=== PATIENT | female | born 1990 | race Caucasian/White ===

== ENCOUNTER 2020-09-15 13:09 | Emergency (ER) | payer MEDICAID ==
--- NOTE | 2020-09-15 13:33 | EDM.PDOC ---
ED HPI GENERAL MEDICAL PROBLEM - General Chief Complaint: Respiratory Problem Stated Complaint: COVID + Time Seen by Provider: 09/15/20 14:32 Source of Information: Reports: Patient, RN, RN Notes Reviewed History Limitations: Reports: No Limitations - History of Present Illness INITIAL COMMENTS - FREE TEXT/NARRATIVE: Patient presents to the ED via personal vehicle with the complaints of chest pain. Per the patient she tested positive for COVID on 09/14/20 after experiencing symptoms on 09/12/20. He attests to shortness of breath, headache, palpitations, and mid-sternal localized chest pain. She denies nausea, vomiting, or diarrhea. The patient states she has a history of SVT and follows with [facility] in Cardiology and Ariel in EP. She states she takes Diltiazem PRN when her chest pain and palpitations "...get really bad." She has not been to either provider since December 2019. She denies syncopal events or changes in vision. Anterior Chest Pain Score (Numeric/FACES): 5 - Related Data Allergies Allergy/AdvReac Type Severity Reaction Status Date / Time tape adhesive AdvReac Rash Uncoded 09/15/20 12:53 Home Meds: Home Meds Diltiazem [Tiazac] 180 mg PO DAILY PRN 09/15/20 [History] ED ROS GENERAL - Review of Systems Review Of Systems: Comprehensive ROS is negative, except as noted in HPI. ED EXAM, GENERAL - Physical Exam Exam: See Below Exam Limited By: No Limitations General Appearance: Alert, WD/WN, No Apparent Distress Throat/Mouth: Normal Voice, No Airway Compromise Head: Atraumatic, Normocephalic Neck: Normal Inspection, Supple, Non-Tender, Full Range of Motion Respiratory/Chest: No Respiratory Distress, Lungs Clear, Normal Breath Sounds, No Accessory Muscle Use. No: Chest Non-Tender (Midsternal CP) Cardiovascular: Normal Peripheral Pulses, Regular Rate, Rhythm, No Edema, No Gallop, No Murmur, No Rub Peripheral Pulses: 2+: Radial (L), Radial (R), Dorsalis Pedis (L), Dorsalis Pedis (R) GI/Abdominal: Normal Bowel Sounds, Soft, Non-Tender, No Distention, No Mass (Female) Exam: Deferred Rectal (Female) Exam: Deferred Back Exam: Normal Inspection, Full Range of Motion. No: CVA Tenderness (L), CVA Tenderness (R) Extremities: Normal Inspection, Normal Range of Motion, Non-Tender, No Pedal Edema, Normal Capillary Refill Neurological: Alert, Oriented, CN II-XII Intact Skin Exam: Warm, Dry, Intact, Normal Color, No Rash. No: Ecchymosis, Erythema, Pallor, Petechiae, Rash #1 Interpretation EKG Date: 09/15/20 Time: 13:33 Rhythm: NSR Rate (Beats/Min): 71 [place]: Normal P-Wave: Present QRS: Normal ST-T: Normal QT: Normal Comparison: NA - No Prior EKG (NSR; No evidence of acute ischemia) Course - Vital Signs Last Recorded V/S: Last Vital Signs Temp 99 F 09/15/20 12:42 Pulse 71 09/15/20 12:42 Resp 20 09/15/20 12:42 BP 117/72 09/15/20 12:42 Pulse Ox 98 09/15/20 12:42 - Orders/Labs/Meds Orders: Active Orders 24 hr Category Date Time Status EKG Documentation Completion [RC] STAT Care 09/15/20 12:42 Active Chest 1V Frontal [CR] Urgent Exams 09/15/20 12:42 Taken CULTURE BLOOD [BC] Stat Lab 09/15/20 12:59 Received Blood Culture x2 Reflex Set [OM.PC] Stat Oth 09/15/20 12:42 Ordered Labs: Laboratory Tests 09/15/20 09/15/20 09/15/20 Range/Units 12:59 12:59 12:59 WBC 8.8 (5.0-10.0) 10^3/uL RBC 4.67 (4.2-5.4) 10^6/uL Hgb 13.9 (12.0-16.0) g/dL Hct 41.2 (37.0-47.0) % MCV 88.2 (80-100) fL MCH 29.8 (27.0-34.0) pg MCHC 33.7 (33.0-35.0) g/dL Plt Count 337 (150-450) 10^3/uL Neut % (Auto) 58.6 (42.2-75.2) % Lymph % (Auto) 22.6 (20.5-50.1) % [place] % (Auto) 9.2 H (2-8) % Eos % (Auto) 9.1 H (1.0-3.0) % Baso % (Auto) 0.5 (0.0-1.0) % Sodium 141 (136-145) mmol/L Potassium 3.9 (3.5-5.1) mmol/L Chloride 104 (98-107) mmol/L Carbon Dioxide 28 (21-32) mmol/L Anion Gap 12.9 (7-13) mEq/L BUN 7 (7-18) mg/dL Creatinine 0.79 (0.55-1.02) mg/dL Est Cr Clr Drug Dosing TNP Estimated GFR (MDRD) > 60 BUN/Creatinine Ratio 8.9 (No establ ref range) Glucose 84 (74-99) mg/dL Lactic Acid 0.9 (0.4-2.0) mmol/L Calcium 9.1 (8.5-10.1) mg/dL Total Bilirubin 0.4 (0.2-1.0) mg/dL AST 36 (15-37) U/L ALT 54 (14-59) U/L Alkaline Phosphatase 89 (46-116) U/L Troponin I < 0.017 (0.000-0.056) ng/mL Total Protein 7.8 (6.4-8.2) g/dL Albumin 3.9 (3.4-5.0) g/dL Globulin 3.9 Albumin/Globulin Ratio 1.0 Urine Color (YELLOW) Urine Appearance (CLEAR) Urine pH (5.0-9.0) Ur Specific [place] (1.005-1.030) Urine Protein (NEGATIVE) Urine Glucose (UA) (NEGATIVE) Urine Ketones (NEGATIVE) Urine Occult Blood (NEGATIVE) Urine Nitrite (NEGATIVE) Urine Bilirubin (NEGATIVE) Urine Urobilinogen (0.2-1.0) mg/dL Ur Leukocyte Esterase (NEGATIVE) Urine Opiates Screen (NEGATIVE) Ur Oxycodone Screen (NEGATIVE) Urine Methadone Screen (NEGATIVE) Ur Barbiturates Screen (NEGATIVE) U Tricyclic Antidepress (NEGATIVE) Ur Phencyclidine Scrn (NEGATIVE) Ur Amphetamine Screen (NEGATIVE) U Methamphetamines Scrn (NEGATIVE) Urine MDMA Screen (NEGATIVE) U Benzodiazepines Scrn (NEGATIVE) Urine Cocaine Screen (NEGATIVE) U Marijuana (THC) Screen (NEGATIVE) 09/15/20 09/15/20 Range/Units 13:08 13:08 WBC (5.0-10.0) 10^3/uL RBC (4.2-5.4) 10^6/uL Hgb (12.0-16.0) g/dL Hct (37.0-47.0) % MCV (80-100) fL MCH (27.0-34.0) pg MCHC (33.0-35.0) g/dL Plt Count (150-450) 10^3/uL Neut % (Auto) (42.2-75.2) % Lymph % (Auto) (20.5-50.1) % [place] % (Auto) (2-8) % Eos % (Auto) (1.0-3.0) % Baso % (Auto) (0.0-1.0) % Sodium (136-145) mmol/L Potassium (3.5-5.1) mmol/L Chloride (98-107) mmol/L Carbon Dioxide (21-32) mmol/L Anion Gap (7-13) mEq/L BUN (7-18) mg/dL Creatinine (0.55-1.02) mg/dL Est Cr Clr Drug Dosing Estimated GFR (MDRD) BUN/Creatinine Ratio (No establ ref range) Glucose (74-99) mg/dL Lactic Acid (0.4-2.0) mmol/L Calcium (8.5-10.1) mg/dL Total Bilirubin (0.2-1.0) mg/dL AST (15-37) U/L ALT (14-59) U/L Alkaline Phosphatase (46-116) U/L Troponin I (0.000-0.056) ng/mL Total Protein (6.4-8.2) g/dL Albumin (3.4-5.0) g/dL Globulin Albumin/Globulin Ratio Urine Color Yellow (YELLOW) Urine Appearance Clear (CLEAR) Urine pH 8.5 (5.0-9.0) Ur Specific [place] 1.020 (1.005-1.030) Urine Protein Negative (NEGATIVE) Urine Glucose (UA) Negative (NEGATIVE) Urine Ketones Negative (NEGATIVE) Urine Occult Blood Negative (NEGATIVE) Urine Nitrite Negative (NEGATIVE) Urine Bilirubin Negative (NEGATIVE) Urine Urobilinogen 0.2 (0.2-1.0) mg/dL Ur Leukocyte Esterase Negative (NEGATIVE) Urine Opiates Screen Negative (NEGATIVE) Ur Oxycodone Screen Negative (NEGATIVE) Urine Methadone Screen Negative (NEGATIVE) Ur Barbiturates Screen Negative (NEGATIVE) U Tricyclic Antidepress Negative (NEGATIVE) Ur Phencyclidine Scrn Negative (NEGATIVE) Ur Amphetamine Screen Negative (NEGATIVE) U Methamphetamines Scrn Negative (NEGATIVE) Urine MDMA Screen Negative (NEGATIVE) U Benzodiazepines Scrn Negative (NEGATIVE) Urine Cocaine Screen Negative (NEGATIVE) U Marijuana (THC) Screen Negative (NEGATIVE) - Re-Assessments/Exams Free Text/Narrative Re-Assessment/Exam: 09/15/20 14:39 Work up consistent with active COVID infection. No signs of active acute cardiac ischemia. Will discharge patient home with instructions to follow up with cardiology early next week. Departure - Departure Time of Disposition: 14:40 Disposition: Home, Self-Care 01 Clinical Impression: COVID-19 Chest pain Qualifiers: Chest pain type: unspecified Qualified Code(s): R07.9 - Chest pain, unspecified - Discharge Information *PRESCRIPTION DRUG MONITORING PROGRAM REVIEWED*: Not Applicable *COPY OF PRESCRIPTION DRUG MONITORING REPORT IN PATIENT PERLA: Not Applicable Instructions: COVID-19: How to Protect Yourself and Others - CDC, Prevent the Spread of COVID-19 if You Are Sick - CDC Forms: ED Department Discharge Additional Instructions: Follow up with cardiology and EP early next week to discuss management of cardiac medications. Sepsis Event Note (ED) - Focused Exam Vital Signs: Vital Signs Temp Pulse Resp BP Pulse Ox 09/15/20 12:42 99 F 71 20 117/72 98 - My Orders Last 24 Hours: My Active Orders 09/15/20 12:42 EKG Documentation Completion [RC] STAT Chest 1V Frontal [CR] Urgent Blood Culture x2 Reflex Set [OM.PC] Stat 09/15/20 12:59 CULTURE BLOOD [BC] Stat - Assessment/Plan Last 24 Hours: My Active Orders 09/15/20 12:42 EKG Documentation Completion [RC] STAT Chest 1V Frontal [CR] Urgent Blood Culture x2 Reflex Set [OM.PC] Stat 09/15/20 12:59 CULTURE BLOOD [BC] Stat
[2020-09-15 13:40] LABS: ANION GAP 12.9 mEq/L (7-13); CHLORIDE,CL 104 mmol/L (98-107); SODIUM,NA 141 mmol/L (136-145)
--- NOTE | 2020-09-15 15:03 | CR ---
EXAMINATION: Chest 1V Frontal SEX: Female AGE: 30 years CLINICAL HISTORY: 30-year-old female complaining of CHEST PAIN. No comparison CXR. INTERPRETATION: Negative exam. 1. Normal cardiac silhouette (size and configuration). 2. No pulmonary vascular congestion, cephalization of vascular flow, alveolar edema or pleural effusions. 3. No lung mass or hilar lymphadenopathy. 4. No atelectasis/collapse or lobar consolidation. 5. No pneumothorax or pneumomediastinum. Midline tracheal bronchial airway unremarkable.
== END 2020-09-15 15:10 | disposition home or self-care (01) ==
LOC: DL.ED 13:09
DX: U07.1 COVID-19 (principal); R07.89 Other chest pain; Z91.048 Other nonmedicinal substance allergy status
CPT/HCPCS: 36415; 71045; 80053; 80305-QW; 81003; 83605; 84484; 85025; 87040; 93005; 99285-25

== ENCOUNTER 2021-02-05 08:30 | Emergency (ER) | payer MEDICAID ==
--- NOTE | 2021-02-05 08:42 | EDM.PDOC ---
ED HPI GENERAL MEDICAL PROBLEM - General Chief Complaint: Lower Extremity Injury/Pain Stated Complaint: LEG PAIN HIGH RISK FOR BLOOD CLOTS Time Seen by Provider: 02/05/21 08:41 Source of Information: Reports: Patient, Old Records, RN, RN Notes Reviewed History Limitations: Reports: No Limitations - History of Present Illness INITIAL COMMENTS - FREE TEXT/NARRATIVE: Pt presents to ER from home by POV with c/o onset of right calf pain last evening. 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 Later she had pain from the right foot to the knee or distal thigh, and the pain became severe. She tried Ibuprofen without relief, then tried Tramadol without relief. Pt is worried about DVT because she is on chronic estrogen therapy. Denies radiating pain, cough, or shortness of breath. Denies injury. Onset: Gradual Onset Date: 02/04/21 Duration: Constant, Getting Worse Location: Reports: Lower Extremity, Right Quality: Reports: Ache Severity: Severe Improves with: Reports: None Worsens with: Reports: Movement Associated Symptoms: Reports: No Other Symptoms Treatments RECEP: Reports: NSAIDS, Other Medication(s) Right Lower Leg Pain Score (Numeric/FACES): 7 - Related Data Allergies Allergy/AdvReac Type Severity Reaction Status Date / Time tape adhesive AdvReac Rash Uncoded 02/05/21 08:48 Home Meds: Home Meds Diltiazem [Tiazac] 30 mg PO BID 09/15/20 [History] Estrogens, Conjugated [Premarin] 0.3 mg PO DAILY 02/05/21 [History] Past Medical History HEENT History: Reports: None Cardiovascular History: Reports: Other (See Below) Other Cardiovascular History: SVT Respiratory History: Reports: None Gastrointestinal History: Reports: None Genitourinary History: Reports: None Musculoskeletal History: Reports: None Neurological History: Reports: None Psychiatric History: Reports: None Endocrine/Metabolic History: Reports: None Hematologic History: Reports: None Immunologic History: Reports: None Oncologic (Cancer) History: Reports: None Dermatologic History: Reports: None - Past Surgical History GI Surgical History: Reports: None Female Surgical History: Reports: Hysterectomy Social & Family History - Caffeine Use Caffeine Use: Reports: Soda - Living Situation & Occupation Living situation: Reports: with Significant Other Occupation: Student Review of Systems - Review of Systems Review Of Systems: Comprehensive ROS is negative, except as noted in HPI. ED EXAM, GENERAL - Physical Exam Exam: See Below Exam Limited By: No Limitations General Appearance: Alert, WD/WN, No Apparent Distress Eye Exam: Bilateral Eye: Normal Inspection Throat/Mouth: Normal Lips, Normal Voice, No Airway Compromise Head: Atraumatic, Normocephalic Neck: Normal Inspection, Full Range of Motion Respiratory/Chest: No Respiratory Distress, Lungs Clear, Normal Breath Sounds, No Accessory Muscle Use, Chest Non-Tender Cardiovascular: Normal Peripheral Pulses, Regular Rate, Rhythm, No Edema Extremities: Normal Range of Motion, No Pedal Edema, Normal Capillary Refill, Leg Pain (Right calf tenderness, no visible swelling, bruising, redness, increased warmth, or deformity). No: Joint Swelling, Increased Warmth, Mottled, Pallor, Redness Neurological: Alert, Oriented, No Motor/Sensory Deficits Psychiatric: Normal Mood Skin Exam: Warm, Dry, Intact, Normal Color, No Rash Course - Vital Signs Last Recorded V/S: Last Vital Signs Temp 97.9 F 02/05/21 08:50 Pulse 72 02/05/21 08:50 Resp 18 02/05/21 08:50 BP 99/69 02/05/21 08:50 Pulse Ox 100 02/05/21 08:50 - Orders/Labs/Meds Orders: Active Orders 24 hr Category Date Time Status Venous Doppler Lwr Ext Rt [US] Stat Exams 02/05/21 08:42 Ordered - Radiology Interpretation Free Text/Narrative:: US Rt Lower Ext. Venous Doppler: no evidence of DVT, see Rad. report. Departure - Departure Time of Disposition: 09:10 Disposition: Home, Self-Care 01 Condition: Good Clinical Impression: Pain of right lower extremity, Lumbar radiculopathy, right - Discharge Information *PRESCRIPTION DRUG MONITORING PROGRAM REVIEWED*: Not Applicable *COPY OF PRESCRIPTION DRUG MONITORING REPORT IN PATIENT PERLA: Not Applicable Instructions: Lumbosacral Radiculopathy Forms: ED Department Discharge Additional Instructions: Rx: Decadron 4mg Rx: Gabapentin 300mg *Do not drive while under the influence of this medicat ion. Activity as tolerated. Follow up in clinic in 3 to 4 days if not improving as expected. Sepsis Event Note (ED) - Focused Exam Vital Signs: Vital Signs Temp Pulse Resp BP Pulse Ox 02/05/21 08:50 97.9 F 72 18 99/69 100 - My Orders Last 24 Hours: My Active Orders 02/05/21 08:42 Venous Doppler Lwr Ext Rt [US] Stat - Assessment/Plan Last 24 Hours: My Active Orders 02/05/21 08:42 Venous Doppler Lwr Ext Rt [US] Stat
--- NOTE | 2021-02-05 09:23 | US ---
PROCEDURE INFORMATION: Exam: US Duplex Right Lower Extremity Veins, Limited Exam date and time: 02/05/2021 8:59 AM Age: 31 years old Clinical indication: Pain; Leg, lower; Right; Additional info: RT calf pain TECHNIQUE: Imaging protocol: Real-time Duplex ultrasound of the Right Lower Extremity with 2-D strong scale, color Doppler flow and spectral waveform analysis with image documentation. Limited exam was focused on the right lower extremity veins. COMPARISON: No relevant prior studies available. FINDINGS: Right deep veins: The common femoral, femoral, proximal profunda femoral and popliteal veins are patent without thrombus. Normal Doppler waveforms. Normal compressibility and/or augmentation response. Right superficial veins: Saphenofemoral junction is patent without thrombus. Soft tissues: Unremarkable. IMPRESSION: No evidence of deep vein thrombosis.
== END 2021-02-05 09:24 | disposition home or self-care (01) ==
LOC: DL.ED 08:30
DX: M79.661 Pain in right lower leg (principal); M54.16 Radiculopathy, lumbar region; Z91.048 Other nonmedicinal substance allergy status
CPT/HCPCS: 93971; 99283-25

== ENCOUNTER 2021-02-27 14:54 | Emergency (ER) | payer MEDICAID ==
[2021-02-27] MEDS ORDERED: Acetaminophen/HYDROcodone 325-5 MG Tab PO ONE ×2 (14:55→18:14)
--- NOTE | 2021-02-27 17:50 | EDM.PDOC ---
<David Ty Rosa - Last Filed: 02/27/21 18:14> ED HPI GENERAL MEDICAL PROBLEM - General Chief Complaint: Back Pain or Injury Stated Complaint: BACK AND LEG HURT 20XS WORSE THAN LAST TIME Time Seen by Provider: 02/27/21 17:43 Source of Information: Reports: Patient History Limitations: Reports: No Limitations - History of Present Illness INITIAL COMMENTS - FREE TEXT/NARRATIVE: 31 y/o F c/o back pain that radiates down the back of both legs. The pain is sharp and constant and worse with movement. Has had symptoms intermittently over the last 3 weeks. Has had a thoracic and lumbar MRI that was normal. Pt states she will have episodes where her she develops pain that radiates up her back or occasions where there is pain in both arms. hx of SVT and hysterectomy. Denies fever, cough, chills, drugs, etoh, cp, db, abd pn, difficulty voiding, constipation. 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 History: Reports: None Musculoskeletal History: Reports: Other (See Below) Other Musculoskeletal History: fractured ribs Neurological History: Reports: None Psychiatric History: Reports: None Endocrine/Metabolic History: Reports: None Hematologic History: Reports: None Immunologic History: Reports: None Oncologic (Cancer) History: Reports: None Dermatologic History: Reports: None - Infectious Disease History Infectious Disease History: Reports: Chicken Pox - Past Surgical History Head Surgeries/Procedures: Reports: None GI Surgical History: Reports: None Female Surgical History: Reports: D&C, Hysterectomy Social & Family History - Family History Family Medical History: No Pertinent Family History - Tobacco Use Tobacco Use Status *Q: Never Tobacco User Second Hand Smoke Exposure: No - Caffeine Use Caffeine Use: Reports: None - Recreational Drug Use Recreational Drug Use: No - Living Situation & Occupation Living situation: Reports: with Significant Other Occupation: Student ED ROS GENERAL - Review of Systems Review Of Systems: Comprehensive ROS is negative, except as noted in HPI. ED EXAM,LOWER BACK PAIN/INJURY - Physical Exam Exam: See Below Exam Limited By: No Limitations General Appearance: Alert, WD/WN, No Apparent Distress Eye Exam: Bilateral Eye: PERRL Throat/Mouth: Normal Inspection, Normal Lips, Normal Teeth, Normal Gums, Normal Oropharynx, Normal Voice, No Airway Compromise Head: Atraumatic, Normocephalic Neck: Normal Inspection, Supple, Non-Tender, Full Range of Motion Respiratory/Chest: No Respiratory Distress, Lungs Clear, Normal Breath Sounds, No Accessory Muscle Use, Chest Non-Tender Cardiovascular: Normal Peripheral Pulses, Regular Rate, Rhythm, No Edema, No Gallop, No JVD, No Murmur, No Rub GI/Abdominal: Soft, Non-Tender (Female) Exam: Deferred Rectal (Female) Exam: Deferred Back Exam: Normal Inspection, Full Range of Motion, Other (vertebral tenderness L4-L5) Extremities: Normal Inspection, Normal Range of Motion, Non-Tender, No Pedal Edema, Normal Capillary Refill Neurological: Alert, Normal Mood/Affect, Normal Dorsiflexion, CN II-XII Intact, Normal Plantar Flexion, Normal Gait, Normal Reflexes, No Motor/Sensory Deficits, Oriented x 3 Psychiatric: Normal Affect, Normal Mood Skin Exam: Warm, Dry, Intact, Normal Color, No Rash Lymphatic: No Adenopathy Departure - Departure Time of Disposition: 18:14 Disposition: Home, Self-Care 01 Condition: Fair Clinical Impression: Neuritis - Discharge Information *PRESCRIPTION DRUG MONITORING PROGRAM REVIEWED*: Not Applicable *COPY OF PRESCRIPTION DRUG MONITORING REPORT IN PATIENT PERLA: Not Applicable Instructions: Neuropathic Pain Forms: ED Department Discharge Additional Instructions: Follow up with your primary care physician on monday. Discuss with them about etiologies of polyneuropathy such as vitamin B 12, B6, thiamine, vitamin D deficiencies. Also consider a multiple sclerosis workup and an MRI of your brain and cervical spine. If any new symptoms or concerns develop contact your primary care facility or return to the ER. Sepsis Event Note (ED) - Evaluation Sepsis Screening Result: No Definite Risk <Kash Hamm - Last Filed: 02/27/21 18:19> Course - Vital Signs Last Recorded V/S: Last Vital Signs Temp 99.2 F 02/27/21 15:09 Pulse 98 02/27/21 15:09 Resp 20 02/27/21 15:09 BP 109/71 02/27/21 15:09 Pulse Ox 97 02/27/21 15:09 - Orders/Labs/Meds Meds: Medications Discontinued Medications Generic Name Dose Route Start Last Admin Trade Name Freq PRN Reason Stop Dose Admin Hydrocodone Bitart/Acetaminophen 1 tab 02/27/21 18:14 Acetaminophen/Hydrocodone 325-5 Mg Tab PO 02/27/21 18:15 ONETIME ONE - Re-Assessments/Exams Free Text/Narrative Re-Assessment/Exam: 02/27/21 18:19 I personally performed or re-performed the physical examination and medical decision making. I have verified all student documentation or findings, including history, physical exam and/or medical decision making. Sepsis Event Note (ED) - Focused Exam Vital Signs: Vital Signs Temp Pulse Resp BP Pulse Ox 02/27/21 15:09 99.2 F 98 20 109/71 97
[2021-02-27] MEDS ORDERED: Acetaminophen/HYDROcodone 325-5 MG Tab ONE (18:28)
== END 2021-02-27 18:33 | disposition home or self-care (01) ==
LOC: DL.ED 14:54
DX: M79.2 Neuralgia and neuritis, unspecified (principal); Z91.048 Other nonmedicinal substance allergy status
CPT/HCPCS: 99283; A9270

== ENCOUNTER 2021-05-22 21:25 | Emergency (ER) | payer MEDICAID ==
[2021-05-22] MEDS ORDERED: Sodium Chloride 0.9% 1,000 ML IV ONE (21:32)
[2021-05-22] MEDS ORDERED: Diltiazem IR 30 MG Tab PO ONE (21:39)
[2021-05-22] MEDS ORDERED: Aspirin 81 MG Tab.Chew PO ONE (21:41)
--- NOTE | 2021-05-22 21:53 | EDM.PDOC ---
ED HPI GENERAL MEDICAL PROBLEM - General Stated Complaint: IRREGULAR HEART BEAT / PREVIOUS HISTORY Time Seen by Provider: 05/22/21 21:35 Source of Information: Reports: Patient, RN History Limitations: Reports: No Limitations - History of Present Illness INITIAL COMMENTS - FREE TEXT/NARRATIVE: ED with c/o irregular eartrate, beating fast, chest pressure. Has hx of similar in past but none recent. Was on cardizem but not taken for past 3-4 months. Sitting at races when started. Drove self from race track to hospital. C/o face arms and hands tingling. felt maybe converted group home here. Denies drug or ETOH use. Minimal caffeine No energy drinks. 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 Musculoskeletal History: Reports: Other (See Below) Other Musculoskeletal History: fractured ribs Neurological History: Reports: None Psychiatric History: Reports: None Endocrine/Metabolic History: Reports: None Hematologic History: Reports: None Immunologic History: Reports: None Oncologic (Cancer) History: Reports: None Dermatologic History: Reports: None - Infectious Disease History Infectious Disease History: Reports: Chicken Pox - Past Surgical History Head Surgeries/Procedures: Reports: None GI Surgical History: Reports: None Female Surgical History: Reports: D&C, Hysterectomy Social & Family History - Family History Family Medical History: No Pertinent Family History - Caffeine Use Caffeine Use: Reports: None - Living Situation & Occupation Living situation: Reports: with Significant Other Occupation: Student ED ROS GENERAL - Review of Systems Review Of Systems: Comprehensive ROS is negative, except as noted in HPI. ED EXAM, GENERAL - Physical Exam Exam: See Below Exam Limited By: No Limitations General Appearance: Alert, Anxious Eye Exam: Bilateral Eye: EOMI Ears: Normal External Exam, Hearing Grossly Normal Nose: Normal Inspection Throat/Mouth: Normal Inspection, Normal Lips Respiratory/Chest: No Respiratory Distress, Lungs Clear, Normal Breath Sounds Cardiovascular: Normal Peripheral Pulses, Regular Rate, Rhythm GI/Abdominal: Normal Bowel Sounds Back Exam: Normal Inspection Extremities: Normal Inspection. No: No Pedal Edema Neurological: Alert, Oriented, Normal Cognition Psychiatric: Anxious Skin Exam: Warm, Dry, Intact, Normal Color #1 Interpretation EKG Date: 05/22/21 Time: 21:35 Rhythm: NSR Rate (Beats/Min): 83 [place]: Normal P-Wave: Present QRS: Normal ST-T: Normal Comparison: NA - No Prior EKG Course - Vital Signs Last Recorded V/S: Last Vital Signs Temp 98.9 F 05/22/21 21:30 Pulse 100 05/22/21 21:30 Resp 23 H 05/22/21 21:30 BP 126/77 05/22/21 21:30 Pulse Ox 100 05/22/21 21:30 - Orders/Labs/Meds Orders: Active Orders 24 hr Category Date Time Status EKG Documentation Completion [RC] AM Care 05/22/21 21:30 Active Sodium Chloride 0.9% [Normal Saline] 1,000 ml Med 05/22/21 21:32 Active IV .BOLUS Medication Orders Sodium Chloride (Normal Saline) 1,000 mls @ 125 mls/hr IV .BOLUS ONE Stop: 05/23/21 05:31 Last Admin: 05/22/21 21:49 Dose: 125 mls/hr Documented by: JHONNY Labs: Laboratory Tests 05/22/21 05/22/21 05/22/21 Range/Units 21:45 21:45 21:45 WBC 8.8 (5.0-10.0) 10^3/uL RBC 4.73 (4.2-5.4) 10^6/uL Hgb 14.0 (12.0-16.0) g/dL Hct 40.3 (37.0-47.0) % MCV 85.2 D (80-100) fL MCH 29.6 (27.0-34.0) pg MCHC 34.7 (33.0-35.0) g/dL Plt Count 332 (150-450) 10^3/uL Neut % (Auto) 50.5 (42.2-75.2) % Lymph % (Auto) 39.0 (20.5-50.1) % [place] % (Auto) 8.0 (2-8) % Eos % (Auto) 2.2 (1.0-3.0) % Baso % (Auto) 0.3 (0.0-1.0) % D-Dimer, Quantitative < 100 (0-400) ng/mL Sodium 141 (136-145) mmol/L Potassium 3.3 L (3.5-5.1) mmol/L Chloride 104 (98-107) mmol/L Carbon Dioxide 23 (21-32) mmol/L Anion Gap 17.3 H (7-13) mEq/L BUN 11 (7-18) mg/dL Creatinine 1.00 (0.55-1.02) mg/dL Est Cr Clr Drug Dosing 77.71 mL/min Estimated GFR (MDRD) > 60 BUN/Creatinine Ratio 11.0 (No establ ref range) Glucose 89 (70-99) mg/dL Calcium 8.9 (8.5-10.1) mg/dL Total Bilirubin 0.5 (0.2-1.0) mg/dL AST 18 (15-37) U/L ALT 22 (14-59) U/L Alkaline Phosphatase 78 (46-116) U/L Troponin I High Sens 4 (<=51) pg/mL Total Protein 7.3 (6.4-8.2) g/dL Albumin 4.2 (3.4-5.0) g/dL Globulin 3.1 Albumin/Globulin Ratio 1.4 TSH, Ultra Sensitive 3.54 (0.36-3.74) uIU/mL HCG, Qual Negative Ethyl Alcohol < 3 (0) mg/dL 05/22/21 Range/Units 23:45 WBC (5.0-10.0) 10^3/uL RBC (4.2-5.4) 10^6/uL Hgb (12.0-16.0) g/dL Hct (37.0-47.0) % MCV (80-100) fL MCH (27.0-34.0) pg MCHC (33.0-35.0) g/dL Plt Count (150-450) 10^3/uL Neut % (Auto) (42.2-75.2) % Lymph % (Auto) (20.5-50.1) % [place] % (Auto) (2-8) % Eos % (Auto) (1.0-3.0) % Baso % (Auto) (0.0-1.0) % D-Dimer, Quantitative (0-400) ng/mL Sodium (136-145) mmol/L Potassium (3.5-5.1) mmol/L Chloride (98-107) mmol/L Carbon Dioxide (21-32) mmol/L Anion Gap (7-13) mEq/L BUN (7-18) mg/dL Creatinine (0.55-1.02) mg/dL Est Cr Clr Drug Dosing mL/min Estimated GFR (MDRD) BUN/Creatinine Ratio (No establ ref range) Glucose (70-99) mg/dL Calcium (8.5-10.1) mg/dL Total Bilirubin (0.2-1.0) mg/dL AST (15-37) U/L ALT (14-59) U/L Alkaline Phosphatase (46-116) U/L Troponin I High Sens 4 (<=51) pg/mL Total Protein (6.4-8.2) g/dL Albumin (3.4-5.0) g/dL Globulin Albumin/Globulin Ratio TSH, Ultra Sensitive (0.36-3.74) uIU/mL HCG, Qual Ethyl Alcohol (0) mg/dL Meds: Medications Generic Name Dose Route Start Last Admin Trade Name Freq PRN Reason Stop Dose Admin Sodium Chloride 1,000 mls @ 125 mls/hr 05/22/21 21:32 05/22/21 21:49 Normal Saline IV 05/23/21 05:31 125 mls/hr .BOLUS ONE Administration Discontinued Medications Generic Name Dose Route Start Last Admin Trade Name Freq PRN Reason Stop Dose Admin Aspirin 324 mg 05/22/21 21:41 05/22/21 21:49 Aspirin 81 Mg Tab.Chew PO 05/22/21 21:42 324 mg ONETIME ONE Administration Diltiazem HCl 30 mg 05/22/21 21:39 05/22/21 21:49 Diltiazem Ir 30 Mg Tab PO 05/22/21 21:40 30 mg ONETIME ONE Administration Potassium Chloride 10 meq 05/22/21 22:23 05/22/21 22:28 Potassium Chloride 10 Meq Tab.Er PO 05/22/21 22:24 10 meq ONETIME ONE Administration - Re-Assessments/Exams Free Text/Narrative Re-Assessment/Exam: 05/22/21 23:35 Sinus rhythm, no ectopy noted. resting, on phone. Departure - Departure Time of Disposition: 00:21 Disposition: Home, Self-Care 01 Condition: Good Clinical Impression: Palpitations Instructions: Palpitations Additional Instructions: increase fluids avoid caffeine resume cardizem 30mg twice daily follow with primary care this week, follow up with cardiology urgent follow up if symptoms resume, if dizzness don't drive call 911 Sepsis Event Note (ED) - Focused Exam Vital Signs: Vital Signs Temp Pulse Resp BP Pulse Ox 05/22/21 21:30 98.9 F 100 23 H 126/77 100 - My Orders Last 24 Hours: My Active Orders 05/22/21 21:30 EKG Documentation Completion [RC] AM 05/22/21 21:32 Sodium Chloride 0.9% [Normal Saline] 1,000 ml IV .BOLUS - Assessment/Plan Last 24 Hours: My Active Orders 05/22/21 21:30 EKG Documentation Completion [RC] AM 05/22/21 21:32 Sodium Chloride 0.9% [Normal Saline] 1,000 ml IV .BOLUS
[2021-05-22 22:16] LABS: ANION GAP 17.3 mEq/L (7-13); CHLORIDE,CL 104 mmol/L (98-107); SODIUM,NA 141 mmol/L (136-145)
[2021-05-22] MEDS ORDERED: Potassium Chloride 10 MEQ Tab.ER PO ONE (22:23)
== END 2021-05-23 00:39 | disposition home or self-care (01) ==
LOC: DL.ED 21:25
DX: R00.2 Palpitations (principal); Z91.048 Other nonmedicinal substance allergy status
CPT/HCPCS: 36415; 80053; 80307; 84443; 84484; 84703; 85025; 85379; 93005; 93010; 99284; 99285-25; A9270-GY; J7030

== ENCOUNTER 2021-10-22 13:44 | Emergency (ER) | payer MEDICAID ==
--- NOTE | 2021-10-22 14:08 | EDM.PDOC ---
ED HPI GENERAL MEDICAL PROBLEM - General Chief Complaint: Upper Extremity Injury/Pain Stated Complaint: BONILLA LEMON IN HAND Time Seen by Provider: 10/22/21 14:07 Source of Information: Reports: Patient, RN, RN Notes Reviewed History Limitations: Reports: No Limitations - History of Present Illness INITIAL COMMENTS - FREE TEXT/NARRATIVE: Cooper is a 31 y/o female who presents to the ED via personal vehicle with complaints of laceration to her third MPJ on the right hand. 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 She notes the wound did not bleed very much, but she is concerned their is injury to the MPJ. She denies loss of sensory or motor function to the extremity. She has taken no medications or performed any supportive cares for her pain. The patient reports she has received a tetanus vaccine in the past 3 years. Right Hand Pain Score (Numeric/FACES): 8 - Related Data Allergies Allergy/AdvReac Type Severity Reaction Status Date / Time tape adhesive AdvReac Rash Uncoded 10/22/21 14:01 Home Meds: Home Meds Diltiazem [Tiazac] 30 mg PO BID 09/15/20 [History] Estrogens, Conjugated [Premarin] 0.3 mg PO DAILY 02/05/21 [History] Gabapentin [Neurontin] 300 mg PO TID 10/22/21 [History] Venlafaxine HCl [Venlafaxine ER] 37.5 mg PO DAILY 10/22/21 [History] Past Medical History HEENT History: Reports: None Cardiovascular History: Reports: Other (See Below) Other Cardiovascular History: SVT, cardiac cath Respiratory History: Reports: None Gastrointestinal History: Reports: None Genitourinary History: Reports: None 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 Musculoskeletal History: Reports: Other (See Below) Other Musculoskeletal History: fractured ribs Neurological History: Reports: None Psychiatric History: Reports: None Endocrine/Metabolic History: Reports: None Hematologic History: Reports: None Immunologic History: Reports: None Oncologic (Cancer) History: Reports: None Dermatologic History: Reports: None - Infectious Disease History Infectious Disease History: Reports: Chicken Pox - Past Surgical History Head Surgeries/Procedures: Reports: None GI Surgical History: Reports: None Female Surgical History: Reports: D&C, Hysterectomy Social & Family History - Family History Family Medical History: No Pertinent Family History - Caffeine Use Caffeine Use: Reports: Soda - Living Situation & Occupation Living situation: Reports: with Significant Other Occupation: Student Review of Systems - Review of Systems Review Of Systems: Comprehensive ROS is negative, except as noted in HPI. ED EXAM, GENERAL - Physical Exam Exam: See Below Exam Limited By: No Limitations General Appearance: Alert, No Apparent Distress Eye Exam: Bilateral Eye: EOMI, PERRL (3mm) Ears: Normal External Exam, Hearing Grossly Normal Throat/Mouth: Normal Inspection, Normal Oropharynx, Normal Voice, No Airway Compromise Head: Atraumatic, Normocephalic Neck: Normal Inspection Respiratory/Chest: No Respiratory Distress, Lungs Clear, Normal Breath Sounds, No Accessory Muscle Use, Chest Non-Tender Cardiovascular: Normal Peripheral Pulses, Regular Rate, Rhythm, No Gallop, No Murmur, No Rub Peripheral Pulses: 2+: Radial (L), Radial (R) GI/Abdominal: Normal Bowel Sounds, Soft (Female) Exam: Deferred Rectal (Female) Exam: Deferred Back Exam: Normal Inspection Extremities: Normal Range of Motion, Normal Capillary Refill, Joint Swelling, Arm Pain (5mm laceration to right third MPJ). No: Increased Warmth, Mottled, Pallor, Redness Neurological: Alert, Oriented, CN II-XII Intact, Normal Cognition, Normal Gait, Normal Reflexes, No Motor/Sensory Deficits Psychiatric: Normal Affect, Normal Mood Skin Exam: Warm, Dry, Normal Color, No Rash, Wound/Incision (See above). No: Cyanosis, Ecchymosis, Erythema, Jaundice, Mottled, Pallor, Petechiae Course - Vital Signs Last Recorded V/S: Last Vital Signs Temp 97.6 F 10/22/21 14:03 Pulse 66 10/22/21 14:03 Resp 18 10/22/21 14:03 BP 112/83 10/22/21 14:03 Pulse Ox 97 10/22/21 14:03 - Radiology Interpretation Free Text/Narrative:: [facility] Final Radiology Report Call: [phone] assistance Online chat: [email or web address] Name: COOPER ZIEGLER Age: 31Years F Date: 10/22/2021 SSN: -- : [id number] Study: CR FINGERS THIRD DIGIT RT Requesting Physician: Muna Green Images: 3 Addl Studies: Provided Clinical History: Injury to third MPJ from deer antler Contrast: Contrast Medium: Contrast Amount: Contrast Method: CONFIDENTIALITY STATEMENT This report is intended only for use by the referring physician, and only in accordance with law. If you received this in error, call [phone]. Page 1 of 1 PROCEDURE INFORMATION: Exam: XR Right Finger(s) Exam date and time: 10/22/2021 2:12 PM Age: 31 years old Clinical indication: Other: Injury to third mpj from deer antler TECHNIQUE: Imaging protocol: XR Right fingers. Views: Minimum 2 views. COMPARISON: No relevant prior studies available. FINDINGS: Bones/joints: No acute fracture or dislocation. Soft tissues: Unremarkable. IMPRESSION: No acute findings. Thank you for allowing us to participate in the care of your patient. Dictated and Authenticated by: Romie Morales MD 10/22/2021 2:30 PM Central Time ([place] & [place]) - Re-Assessments/Exams Free Text/Narrative Re-Assessment/Exam: 10/22/21 Xray right third digit obtained to r/o fracture or dislocation. Findings of examination and imaging reviewed with patient. Laceration cleaned and Dermabond applied. Supportive cares reviewed. Red flag signs and symptoms which would warrant immediate reevaluation reviewed. Patient verbalized understanding and agreement with the plan of care. Departure - Departure Time of Disposition: 15:29 Disposition: Home, Self-Care 01 Condition: Good Clinical Impression: Laceration of right hand Qualifiers: Encounter type: initial encounter Foreign body presence: without foreign body Qualified Code(s): S61.411A - Laceration without foreign body of right hand, initial encounter - Discharge Information *PRESCRIPTION DRUG MONITORING PROGRAM REVIEWED*: Not Applicable *COPY OF PRESCRIPTION DRUG MONITORING REPORT IN PATIENT PERLA: Not Applicable Instructions: Laceration Care, Adult Forms: ED Department Discharge Additional Instructions: 1.) You may take ibuprofen (Advil/Motrin) 400mg every six hours, as pain and swelling persist. You may also take acetaminophen (Tylenol) 650mg every six hours, as pain persists. You may stagger these medications so you are taking a dose of either every three hours. 2.) You may apply cold compresses to the area as pain and swelling persist, 20 minutes every hour. 3.) Dermabond will fall off naturally, do not pick or peel away glue. 4.) Keep laceration clean and dry. 5.) Follow up with your primary care provider, or return to the emergency department, with any persistent or worsening symptoms. Sepsis Event Note (ED) - Evaluation Sepsis Screening Result: No Definite Risk
--- NOTE | 2021-10-22 14:30 | CR ---
PROCEDURE INFORMATION: Exam: XR Right Finger(s) Exam date and time: 10/22/2021 2:12 PM Age: 31 years old Clinical indication: Other: Injury to third mpj from deer antler TECHNIQUE: Imaging protocol: XR Right fingers. Views: Minimum 2 views. COMPARISON: No relevant prior studies available. FINDINGS: Bones/joints: No acute fracture or dislocation. Soft tissues: Unremarkable. IMPRESSION: No acute findings.
== END 2021-10-22 15:37 | disposition home or self-care (01) ==
LOC: DL.ED 13:44
DX: S61.411A Laceration without foreign body of right hand, initial encounter (principal); Z91.048 Other nonmedicinal substance allergy status; W26.8XXA Contact with other sharp object(s), not elsewhere classified, initial encounter; Y99.0 Civilian activity done for income or pay
CPT/HCPCS: 12001; 73140-F7; 99283-25

== ENCOUNTER 2022-04-13 08:03 | Emergency (ER) | payer MEDICAID ==
[2022-04-13] MEDS ORDERED: Metoclopramide 10 MG/2 ML SDV IVPUSH ONE (08:27)
[2022-04-13] MEDS ORDERED: HYDROmorphone 0.5 MG/0.5 ML Syringe IVPUSH ONE ×2 (08:27→09:56)
[2022-04-13] MEDS ORDERED: Sodium Chloride 0.9% 1,000 ML IV ONE (08:27)
[2022-04-13 09:09] LABS: ANION GAP 12.1 mEq/L (7-13); CHLORIDE,CL 106 mmol/L (98-107); SODIUM,NA 142 mmol/L (136-145)
[2022-04-13] MEDS ORDERED: Iopamidol 612 MG/ML 100 ML Bottle IVPUSH ONE (09:15)
[2022-04-13] MEDS ORDERED: HYDROmorphone 0.5 MG/0.5 ML Syringe ONE (09:58)
[2022-04-13] MEDS ORDERED: Magnesium Citrate Solution 296 ML Bottle ONE (09:59)
== END 2022-04-13 10:35 | disposition home or self-care (01) ==
LOC: DL.ED 08:03
DX: K59.00 Constipation, unspecified (principal); Z91.048 Other nonmedicinal substance allergy status; Z88.8 Allergy status to other drugs, medicaments and biological substances
CPT/HCPCS: 36415; 74177; 80053; 81003; 82150; 83605; 83690; 83735; 85025; 87040; 96361; 96374; 96375; 96376; 99284; A9270; J1170; J2765; J7030; Q9967